=== PATIENT | female | born 1975 | race Caucasian/White ===

== ENCOUNTER 2017-12-24 01:45 | Emergency (ER) | payer BC ==
[~2017-12-24] VITALS: Ht 172.7 cm; Wt 86.2 kg
--- NOTE | ~2017-12-24 | EKG ---
[place], [place] ELECTROCARDIOGRAM REPORT NAME: MARSHALL ROJAS UNIT #: [id number] ROOM: DOCTOR: TANYA PEREZ MD BIRTHDATE: [birth year] DOS: 12/24/2017 TIME: 0212 hours. Normal sinus rhythm. There is sinus tachycardia at 105 beats per minute. The tracing is normal. No previous tracing is available for comparison. TANYA PEREZ MD CM:EKGRPT:ELECTROCARDIOGRAM REPORT [id number] TANYA PEREZ MD
[~2017-12-24 01:45] MED LIST: FLEXERIL10 MG PO; HYDROCODONE BIT1 T11 PO; IBU-8800 MG PO; MOTRIN800 MG PO; NAPROSYN500 MG PO; NKHM; NORCO 325 MG-51 TAB PO
[2017-12-24 02:17] LABS: BASO # 0.1 10*3/uL (0.0-0.1); BASO % 0.7 % (0.0-1.0); EOS # 0.3 10*3/uL (0.0-0.4); EOS % 2.9 % (1.0-4.0); HEMATOCRIT 35.7 % (37.0-47.0); HEMOGLOBIN 11.8 g/dl (12.0-16.0); LYMPH # 2.6 10*3/uL (1.3-4.4); LYMPH % 22.9 % (27.0-41.0); MEAN CORPUSCULAR HGB 30.4 pg (27.0-31.0); MEAN CORPUSCULAR HGB CONC 33.1 g/dl (33.0-37.0); MEAN PLATELET VOLUME 8.9 fl (9.6-12.3); MONO # 0.8 10*3/uL (0.1-1.0); MONO % 7.1 % (3.0-9.0); NEUT # 7.6 10*3/uL (2.3-7.9); PLATELET COUNT AUTOMATED 337 10*3/uL (130-400); RED BLOOD COUNT 3.88 10*6/uL (4.10-5.10); RED CELL DISTRI WIDTH 13.2 % (0-14.5); WHITE BLOOD COUNT 11.5 10*3/uL (4.8-10.8)
[2017-12-24 02:34] LABS: ALBUMIN 3.4 gm/dl (3.1-4.5); ALKALINE PHOSPHATASE 62 U/L (45-117); BUN 11 mg/dl (7-24); CHLORIDE 106 mmol/L (98-107); CREATININE 0.91 mg/dL (0.55-1.02); POTASSIUM 3.6 mmol/L (3.5-5.1); SGOT/AST 8 IU/L (3-35); SGPT/ALT 21 U/L (12-78); SODIUM 137 mmol/L (136-145); TOTAL PROTEIN 8.5 gm/dL (6.4-8.2)
[2017-12-24 02:38] LABS: BETA-HCG, QUANT < 1.0 mIU/mL (1-3); TROPONIN I < 0.015 ng/ml (<0.045)
[2017-12-24] MEDS ORDERED: AVPAK AZITHROM250 M1 PO (02:48)
== END 2017-12-24 03:09 | disposition home or self-care (01) ==
LOC: ED 01:45
PROVIDERS: Student in an Organized Health Care Education/Training Program
DX: F41.9 Anxiety disorder, unspecified (principal); T43.215A Adverse effect of selective serotonin and norepinephrine reuptake inhibitors, initial encounter; Z98.890 Other specified postprocedural states; Y92.89 Other specified places as the place of occurrence of the external cause

== ENCOUNTER 2018-03-17 04:59 | Emergency (ER) | payer BC ==
[~2018-03-17] VITALS: Ht 172.7 cm; Wt 86.2 kg
--- NOTE | ~2018-03-17 | EKG ---
[place], [place] ELECTROCARDIOGRAM REPORT NAME: MARSHALL ROJAS UNIT #: [id number] ROOM: DOCTOR: ROXI DRAFT REPORT BIRTHDATE: [birth year] [facility] Test Date: 2018-03-17 Test Time: 07:11:10 Pat Name: MARSHALL ROJAS Department: Room: Gender: F Energy Conservation Representative: Bertha Fang : 1975 Requested By: TIFFANY DENISE Order Number: [id number] Reading MD: Paco Villalpando MD Measurements Intervals [place] Rate: 75 P: 64 [place]: 156 QRS: 19 QRSD: 88 T: 36 QT: 381 QTc: 426 Interpretive Statements Sinus rhythm Baseline wander in lead(s) III,aVF No previous ECG available for comparison Electronically Signed On 03-17-2018 20:04:14 PDT by Paco Villalpando MD CM:EKGRPT:ELECTROCARDIOGRAM REPORT [id number] Lukas ZENG DRAFT REPORT ITFFANY DENISE DO
[~2018-03-17 04:59] MED LIST changes: +AVPAK AZITHROM250 M1 PO
[2018-03-17 07:07] LABS: BASO # 0.1 10*3/uL (0.0-0.1); BASO % 0.9 % (0.0-1.0); EOS # 0.2 10*3/uL (0.0-0.4); EOS % 2.6 % (1.0-4.0); LYMPH % 24.3 % (27.0-41.0); MEAN CELL VOLUME 93.5 fl (81.0-99.0); MEAN CORPUSCULAR HGB 31.2 pg (27.0-31.0); MEAN CORPUSCULAR HGB CONC 33.3 g/dl (33.0-37.0); MEAN PLATELET VOLUME 9.5 fl (9.6-12.3); MONO # 0.6 10*3/uL (0.1-1.0); MONO % 7.9 % (3.0-9.0); NEUT # 5.1 10*3/uL (2.3-7.9); NEUT % 63.9 % (47.0-73.0); PLATELET COUNT AUTOMATED 256 10*3/uL (130-400); RED BLOOD COUNT 4.17 10*6/uL (4.10-5.10); RED CELL DISTRI WIDTH 14.2 % (0-14.5)
[2018-03-17 07:24] LABS: ALBUMIN 3.6 gm/dl (3.1-4.5); ALKALINE PHOSPHATASE 50 U/L (45-117); BUN 7 mg/dl (7-24); CHLORIDE 103 mmol/L (98-107); CREATININE 0.94 mg/dL (0.55-1.02); POTASSIUM 4.3 mmol/L (3.5-5.1); SGOT/AST 65 IU/L (3-35); SGPT/ALT 40 U/L (12-78); SODIUM 135 mmol/L (136-145); TOTAL PROTEIN 8.5 gm/dL (6.4-8.2)
[2018-03-17 07:27] LABS: TROPONIN I < 0.015 ng/ml (<0.045)
[2018-03-17] MEDS ORDERED: ATIVAN1 MG PO (08:05)
== END 2018-03-17 08:06 | disposition home or self-care (01) ==
LOC: ED 04:59
PROVIDERS: Student in an Organized Health Care Education/Training Program
DX: F41.0 Panic disorder [episodic paroxysmal anxiety] (principal); R06.4 Hyperventilation; R20.0 Anesthesia of skin; Z79.2 Long term (current) use of antibiotics

== ENCOUNTER 2019-04-26 01:33 | Emergency (ER) | payer SELFPAY ==
[~2019-04-26] VITALS: Ht 172.7 cm; Wt 81.6 kg
[~2019-04-26 01:33] MED LIST changes: +ATIVAN1 MG PO
[2019-04-26] MEDS ORDERED: CEPHALEXIN500 M1 PO (06:04)
== END 2019-04-26 06:32 | disposition home or self-care (01) ==
LOC: ED 01:33
DX: S01.01XA Laceration without foreign body of scalp, initial encounter (principal); S01.81XA Laceration without foreign body of other part of head, initial encounter; F17.200 Nicotine dependence, unspecified, uncomplicated; Z79.899 Other long term (current) drug therapy; Z98.890 Other specified postprocedural states; X58.XXXA Exposure to other specified factors, initial encounter; Y93.89 Activity, other specified; Y92.89 Other specified places as the place of occurrence of the external cause; Y99.9 Unspecified external cause status

== ENCOUNTER 2020-06-18 19:52 | Emergency (ER) | payer OTHER ==
[~2020-06-18] VITALS: Ht 236.2 cm; Wt 65.8 kg
[~2020-06-18 19:52] MED LIST changes: +CEPHALEXIN500 M1 PO
== END 2020-06-18 20:13 | disposition left against medical advice (07) ==
LOC: ED 19:52
DX: Z04.1 Encounter for examination and observation following transport accident (principal); V89.2XXA Person injured in unspecified motor-vehicle accident, traffic, initial encounter; Y93.89 Activity, other specified; Y92.89 Other specified places as the place of occurrence of the external cause; Y99.8 Other external cause status

== ENCOUNTER → 2021-05-22 | Outpatient (CLI) | payer OTHER | END | disposition home or self-care (01) | LOC: COVID19 15:48 | PROVIDERS: ATTEND Internal Medicine | DX: U07.1 COVID-19 (principal) ==